=== PATIENT | female | born 1975 | race Caucasian/White ===

== ENCOUNTER 2017-05-27 01:13 | Emergency (ER) | payer SELFPAY ==
[~2017-05-27] VITALS: Ht 175.3 cm; Wt 68.0 kg
[2017-05-27] MEDS ORDERED: HYDROcodone-ACET 10/325MG TAB PO ONE (01:45)
[2017-05-27 01:46] VITALS: BP 120/80
== END 2017-05-27 03:49 | disposition home or self-care (01) ==
LOC: ER 01:14
DX: S92.355A Nondisplaced fracture of fifth metatarsal bone, left foot, initial encounter for closed fracture (principal); W10.9XXA Fall (on) (from) unspecified stairs and steps, initial encounter; Y93.89 Activity, other specified; Y92.89 Other specified places as the place of occurrence of the external cause; Y99.8 Other external cause status
CPT/HCPCS: 29515; 73610